=== PATIENT | female | born 1965 | race Caucasian/White ===

== ENCOUNTER 2025-01-26 16:42 | Inpatient (IN) | payer BC, SELFPAY ==
[2025-01-26] VITALS (9 sets, daily range): BP systolic 116–156; BP diastolic 76–120; BMI 38.2; BMI 37.0; BMI 36.9
--- NOTE | 2025-01-26 11:54 | ED.GENMED ---
History of Present Illness
<Krishna Blevins PA-C - Last Filed: 01/26/25 15:46>
General
Chief Complaint: Heart Rate Problem
Time Seen by Provider: 01/26/25 11:40
History of Present Illness
History of Present Illness:
59-year-old female presents to the emergency department for evaluation of heart palpitations, exertional dyspnea, and a positional cough for the past 5 days. She feels profoundly fatigued as well. Denies any overt chest pain or leg swelling.
Denies any recent medication changes, actually she is not on any prescription medicines. Denies any associated fevers or chills. No illicit substance use.
Review of Systems
<Krishna Blevins PA-C - Last Filed: 01/26/25 15:46>
Review of Systems
Allergies reviewed?: Yes
All Other Systems: ROS reviewed and negative except as documented in HPI and ROS
Phy Exam
<Krishna Blevins PA-C - Last Filed: 01/26/25 15:46>
Physical Exam
Physical Exam:
GEN: Well appearing, NAD, WDWN
HEENT: Oral mucosa moist, no scleral icterus
Cardiac: Tachycardic, regular, no murmur
Lung: No respiratory distress, no tachypnea, lungs clear
MSK: No gross deformity or injuries, no edema
Skin: Good color, no pallor or jaundice, no rashes
Neuro: AO x3, moves all extremities freely
Psych: Calm, cooperative
Course
<Krishna Blevins PA-C - Last Filed: 01/26/25 15:46>
Orders/Labs/Results
Orders:
Orders
01/26/25 11:06
Electrocardiogram (*1) Urgent
Reason for Study: Chest Pain
EKG- Treatment ONCE
01/26/25 11:44
Diltiazem 125 mg/125 ml Nss [Cardizem] 125 mg in 125 ml .ROUTE .STK-MED
Diltiazem HCl [Cardizem] 25 mg .ROUTE .STK-MED ONE
01/26/25 11:53
Diltiazem HCl [Cardizem] 25 mg IV NOW STA
01/26/25 11:54
CR Chest - 2 Views Urgent
Comment:
Reason For Exam: SOB/tachycardia
01/26/25 11:55
Complete Blood Count/No Diff Urgent
Comprehensive Metabolic Panel Urgent
Free T4 Urgent
Magnesium Urgent
TSH Reflex To Free T4 Urgent
01/26/25 12:00
Diltiazem 125 mg/125 ml Nss [Cardizem] 125 mg in 125 ml IV PER PROTOCOL
Initial dose in mg/hr, then titrate:: 5
Titrate to keep:: Heart rate 80-100 bpm
Titrate by mg/hr:: 5 mg/hr
Frequency of titrations (minutes):: 15
Maximum dose in mg/hr:: 15
01/26/25 13:33
Diltiazem [Cardizem] 60 mg PO NOW STA
01/26/25 15:24
Heparin 4,000 units IV NOW STA
Nursing to Place Non Medication Order As Directed
Physician Order: PTT 6 hours after initial start of Heparin infusion
01/26/25 15:30
Heparin 32004 Units/250 ml 25,000 units in 250 ml IV PER PROTOCOL
Weight to be used for heparin protocol in kilograms (kg):: 114
Protocol:: Cardiac Tx/Acute Coronary
PTT Goal Range to be used:: PTT 73 to 111 seconds
Order type:: Initial
INITIAL Infusion Dose (UNITS/KG/hr) & then follow protocol:: 15 units/kg/hr
Infusion Dose in UNITS/hr & then follow protocol (UNITS/hr):: 1,500
INFUSION RATE in mL/hr & then follow protocol (mL/hr):: 15
PTT less than or equal to 64 seconds:: Increase rate by 200 units/hr (+ 2 mL/hr)
PTT 64.1 to 72.9 seconds:: Increase rate by 100 units/hr (+ 1 mL/hr)
PTT 73 to 111 seconds:: Target Range. No change in rate.
PTT 111.1 to 130.9 seconds:: Decrease rate by 100 units/hr (- 1 mL/hr)
PTT 131 to 199.9 seconds:: HOLD for 1 hr. Then decrease rate by 200 units/hr (- 2 mL/hr)
PTT greater than or equal to 200 seconds:: HOLD for 2 hrs & Notify Provider. Then decrease by 200 units/hr (-
2 mL/hr)
Lab follow-up:: Each change, PTT q6h until 2 consecutive are therapeutic. Then PTT
daily.
01/26/25 15:37
PTT Urgent
Comment: Obtain baseline before beginning heparin infusion if not already collected
Abnormal Lab Results
01/26/25
11:55
Sodium 133 L mmol/L
(135-145)
Creatinine 1.2 H mg/dL
(0.6-1.0)
Glucose 100 H mg/dl
(70-99)
Alkaline Phosphatase 144 H U/L
(38-126)
TSH (Reflex) 9.72 H uIU/ml
(0.47-4.68)
01/26/25 11:55
01/26/25 11:55
Vital Signs
Initial and Last Documented VS:
Initial Vital Signs
Temp Pulse Resp BP Pulse Ox
98.4 F 59 20 156/120 96
01/26/25 11:02 01/26/25 11:02 01/26/25 11:02 01/26/25 11:02 01/26/25 11:02
Last Documented Vital Signs
Temp Pulse Resp BP Pulse Ox
98.4 F 109 24 146/89 97
01/26/25 11:02 01/26/25 15:14 01/26/25 15:14 01/26/25 15:14 01/26/25 14:00
Jacksonlt;Lang Salgado, - Last Filed: 01/26/25 15:29>
Orders/Labs/Results
Orders:
Orders
01/26/25 11:06
Electrocardiogram (*1) Urgent
Reason for Study: Chest Pain
EKG- Treatment ONCE
01/26/25 11:44
Diltiazem 125 mg/125 ml Nss [Cardizem] 125 mg in 125 ml .ROUTE .STK-MED
Diltiazem HCl [Cardizem] 25 mg .ROUTE .STK-MED ONE
01/26/25 11:53
Diltiazem HCl [Cardizem] 25 mg IV NOW STA
01/26/25 11:54
CR Chest - 2 Views Urgent
Comment:
Reason For Exam: SOB/tachycardia
01/26/25 11:55
Complete Blood Count/No Diff Urgent
Comprehensive Metabolic Panel Urgent
Free T4 Urgent
Magnesium Urgent
TSH Reflex To Free T4 Urgent
01/26/25 12:00
Diltiazem 125 mg/125 ml Nss [Cardizem] 125 mg in 125 ml IV PER PROTOCOL
Initial dose in mg/hr, then titrate:: 5
Titrate to keep:: Heart rate 80-100 bpm
Titrate by mg/hr:: 5 mg/hr
Frequency of titrations (minutes):: 15
Maximum dose in mg/hr:: 15
01/26/25 13:33
Diltiazem [Cardizem] 60 mg PO NOW STA
01/26/25 15:24
Heparin 4,000 units IV NOW STA
Nursing to Place Non Medication Order As Directed
Physician Order: PTT 6 hours after initial start of Heparin infusion
01/26/25 15:30
Heparin 14027 Units/250 ml 25,000 units in 250 ml IV PER PROTOCOL
Weight to be used for heparin protocol in kilograms (kg):: 114
Protocol:: Cardiac Tx/Acute Coronary
PTT Goal Range to be used:: PTT 73 to 111 seconds
Order type:: Initial
INITIAL Infusion Dose (UNITS/KG/hr) & then follow protocol:: 15 units/kg/hr
Infusion Dose in UNITS/hr & then follow protocol (UNITS/hr):: 1,500
INFUSION RATE in mL/hr & then follow protocol (mL/hr):: 15
PTT less than or equal to 64 seconds:: Increase rate by 200 units/hr (+ 2 mL/hr)
PTT 64.1 to 72.9 seconds:: Increase rate by 100 units/hr (+ 1 mL/hr)
PTT 73 to 111 seconds:: Target Range. No change in rate.
PTT 111.1 to 130.9 seconds:: Decrease rate by 100 units/hr (- 1 mL/hr)
PTT 131 to 199.9 seconds:: HOLD for 1 hr. Then decrease rate by 200 units/hr (- 2 mL/hr)
PTT greater than or equal to 200 seconds:: HOLD for 2 hrs & Notify Provider. Then decrease by 200 units/hr (-
2 mL/hr)
Lab follow-up:: Each change, PTT q6h until 2 consecutive are therapeutic. Then PTT
daily.
01/26/25 15:37
PTT Urgent
Comment: Obtain baseline before beginning heparin infusion if not already collected
Abnormal Lab Results
01/26/25
11:55
Sodium 133 L mmol/L
(135-145)
Creatinine 1.2 H mg/dL
(0.6-1.0)
Glucose 100 H mg/dl
(70-99)
Alkaline Phosphatase 144 H U/L
(38-126)
TSH (Reflex) 9.72 H uIU/ml
(0.47-4.68)
01/26/25 11:55
01/26/25 11:55
Vital Signs
Initial and Last Documented VS:
Initial Vital Signs
Temp Pulse Resp BP Pulse Ox
98.4 F 59 20 156/120 96
01/26/25 11:02 01/26/25 11:02 01/26/25 11:02 01/26/25 11:02 01/26/25 11:02
Last Documented Vital Signs
Temp Pulse Resp BP Pulse Ox
98.4 F 109 24 146/89 97
01/26/25 11:02 01/26/25 15:14 01/26/25 15:14 01/26/25 15:14 01/26/25 14:00
<Krishna Blevins PA-C - Last Filed: 01/26/25 15:46>
MDM/Problems Addressed
MDM/Problems Addressed:
59-year-old female presenting with new onset rapid A-fib for at least the past 5 days. She has exertional dyspnea however no anginal symptoms and does not appear grossly volume overloaded, clinical picture not consistent with acute CHF. She was
started promptly on IV diltiazem bolus and infusion with good rate control, given overall well clinical appearance we then gave her an oral loading dose and observed her while maintaining the Cardizem drip. However despite this oral loading
challenge she continues with significant tachycardia with ambulation. Will admit for further rate control options given that she remains symptomatic with ambulation
<Krishna Blevins PA-C - Last Filed: 01/26/25 15:46>
Comment
Comment:
EKG independently interpreted by me shows a rapid atrial fibrillation with no ST changes concerning for ischemia
*Pulse Oximetry
SaO2: 96
Oxygen Mode of Delivery: Room air
Patient hypoxic: no
*Critical Care Note
Total Time (30-74mins, 75-104mins- exclusive of procedures): Not Applicable
ED Attending Note
<Krishna Blevins PA-C - Last Filed: 01/26/25 15:46>
-
Portions of this chart may have been created with voice recognition software.� Occasional wrong word or��sound alike� substitutions may have occurred due to the inherent limitations of voice recognition software.
<Lang Salgado DO - Last Filed: 01/26/25 15:29>
ED Attending Note
Patient seen and examined by attending physician: Yes
I performed the substantive portion of visit, reviewed & personally made and approve the management plan that is documented in note by myself or JERAD.: Yes
ED Attending Note:
Patient presents with palpitations/rapid heart rate. Symptoms have been present for several days. Patient does not anticoagulated. She does not have a relationship with a academic support director.
General: Awake, Alert, Oriented X3. No acute distress.
Vitals: unremarkable
Head: Atraumatic
Lungs: Clear and equal b/l
Heart: Mildly tachycardic, irregular
Abd: Soft, Nontender, No pulsatile mass
Neuro: Nonfocal
Skin: Warm, dry, no rash
Extremities: pulses equal b/l, no edema
Rate control attempted with IV Cardizem. Patient is not a candidate for cardioversion given she has had symptoms for greater than 48 hours without being anticoagulated. Patient will be hospitalized for rate control and ultimate cardioversion
Discharge Plan
Departure
Patient Disposition: Admit
Date of Disposition: 01/26/25
Time of Disposition: 15:25
Admit to: IMU
Presentation/result/management discussed w/ accepting MD/DO: Hospitalist
Discharge Problem:
Atrial fibrillation with RVR
Prescriptions:
No Action
Theragen Tablet
1 tab PO DAILY
ferrous sulfate 137 mg (45 mg iron) Tablet Extended Release
137 mg PO DAILY
Referrals:
Ayse Almonte PA-C [Family Provider, [facility]]
Interventions
Interventions:
*Risk Screen - Suicide Last Done: 01/26/25 11:02
*General Assessment Last Done: 01/26/25 11:02
*Neglect/Abuse Screening Last Done: 01/26/25 11:02
*ED- Fall Risk Assessment Last Done: 01/26/25 15:21
*ED COVID-19 Vaccine History Last Done: 01/26/25 15:21
*ED Influenza Vaccine History Last Done: 01/26/25 15:21
ED- Cardiac Assessment Last Done: 01/26/25 12:07
ED- Pulmonary Assessment Last Done: 01/26/25 12:07
Discharge Date and Time
Print Language: CITIZEN OF [place]
[2025-01-26] MEDS: CARDIZEM 25 MG IV (11:56)
[2025-01-26] MEDS: CARDIZEM 125 IV (12:02)
[2025-01-26 12:10] LABS: Hematocrit 40.8 % (37.0-47.0); Hemoglobin 13.6 g/dL (12.0-16.0); Mean Corp Hgb Conc. 33.3 g/dL (33.0-37.0); Mean Corpuscular Volume 88.5 fL (81.0-99.0); Platelet Count 313 10^3/uL (130-400); Red Cell Dist. Width 13.3 % (11.5-14.5)
[2025-01-26 12:26] LABS: ALT (SGPT) 19 U/L (0-35); AST (SGOT) 23 U/L (14-36); Albumin 4.4 g/dl (3.5-5.0); Alkaline Phosphatase 144 U/L (38-126); Blood Urea Nitrogen 13 mg/dl (7-17); Calcium 9.1 mg/dl (8.4-10.2); Carbon Dioxide 26 mmol/L (22-30); Chloride 100 mmol/L (98-107); Estimated Creatinine Clearance 67 ml/min; Glucose 100 mg/dl (70-99); Magnesium 2.1 mg/dl (1.6-2.3); Potassium 4.2 mmol/L (3.5-5.1); Sodium 133 mmol/L (135-145); Total Protein 7.6 g/dl (6.3-8.2); eGFR 52.14
[2025-01-26] MEDS: CARDIZEM 60 MG PO (13:41)
--- NOTE | 2025-01-26 15:26 | HPS.HSE ---
Family Physician
-
Family Physician: Ayse Almonte
Chief Complaint
-
palpitations and shortness of breath
History of Present Illness
Patient is a 59-year-old female with past medical history significant for hypertension who presented to [facility] ED for evaluation of palpitations and shortness of breath. Patient reports symptoms started approximately 5 days ago, were intermittent and
shortness of breath was exertional and not at rest. Patient does note some lightheadedness with palpitations. Denies any chest pain, cough, diaphoresis, nausea or vomiting.
Medical History
Past Medical History
Past Medical History: Reports Other
Additional Past Medical History:
hypertension
Past Surgical History: Reports None
Additional Past Surgical History:
Vaginal Polyp
Cholecystectomy
Social History
Tobacco: Non-smoker
Alcohol: None
Drug: None
Living: With Roomate
Family History
Family History: Other (Father: CAD, Graves' Disease, [place]; Mother: Lung cancer; Sister: endometrial cancer)
Allergies / Home Medications
Allergies reflects when Allergies were last updated in [facility].
Home Medications with original date entered in [facility]
Allergy/Medication List:
Allergies
Allergy/AdvReac Type Severity Reaction Status Date / Time
venom-honey bee (bee venom Allergy Shortness Verified 01/26/25 11:05
(honey bee)) of Breath
Home Medications
ferrous sulfate 137 mg (45 mg iron) tablet,extended release 137 mg PO DAILY Supplement 01/26/25
therapeutic multivitamin 1 tab PO DAILY Supplement 01/26/25
Review of Systems
-
History Source: Patient
Constitutional: Denies Fever or Chills
EENT: Denies Sore Throat
Respiratory: Reports Trouble Breathing (exertional dyspnea ); Denies Cough or Hemoptysis
Cardiac: Reports Palpitations; Denies Chest Pain, Diaphoresis or Syncope
Abdomen/GI: Denies Abdominal Pain, Nausea, Vomiting or Diarrhea
: Denies Dysuria, Frequency or Urgency
Skin: Denies Rash
Neurological: Reports Dizzy (some lightheadedness noted with palpitations ); Denies Headache, Weakness or Numbness
Endocrine: Denies Polyuria or Polydipsia
Physical Exam
Vital Signs
Vital Signs
Temp Pulse Resp BP Pulse Ox
98.4 F 109 24 146/89 97
01/26/25 11:02 01/26/25 15:14 01/26/25 15:14 01/26/25 15:14 01/26/25 14:00
Physical Exam
General: Well Developed, Well Nourished, No Apparent Distress, Comfortable and Obese
HEENT: NormoCephalic, Moist mucous membranes, PERRLA, Nose Appears Normal and Ears Appear Normal
Respiratory: Clear and Non Labored Respirations
Cardiac: S1/S2, Irregular Rhythm, Tachycardia and Peripheral Edema (bilateral lower extremity +1-2 ); No Murmur
GI: Soft, Non Tender, Non Distended and Normal Bowel Sounds
Musculoskeletal: No Clubbing and No Cyanosis
Skin: Warm and IV/Catheter Site
Neuro: Awake and AO x 3
Psych: Calm and Intact Judgment/Insight
Laboratory Results
-
01/26/25 11:55
01/26/25 11:55
Laboratory Results
Total Bilirubin 1.0 mg/dl (0.2-1.3) 01/26/25 11:55
AST 23 U/L (14-36) 01/26/25 11:55
ALT 19 U/L (0-35) 01/26/25 11:55
Alkaline Phosphatase 144 U/L (38-126) H 01/26/25 11:55
Data Reviewed
-
Diagnostic Radiology: Report Reviewed by me (CXR: Clear lungs.)
Medical Tests (Nuc Med, Echo, EKG etc): Report Reviewed by me (EKG: ATRIAL FIBRILLATION WITH RAPID VENTRICULAR RESPONSE)
Lab Data: Labs Reviewed by me (Na 133, Creat 1.2, est CrCl 67, eGFR 52.14, TSH 9.72)
Impression/Plan
-
IMPRESSION/PLAN:
#palpitations and exertional dyspnea likely 2/2 atrial fibrillation with rapid ventricular response
CXR: Clear lungs.
EKG: ATRIAL FIBRILLATION WITH RAPID VENTRICULAR RESPONSE
- Admit to IVU
- Consult Cardiology
- Consult CM for anticoagulant cost
- diltiazem gtt
- heparin gtt
#acute kidney injury??
Na 133, Creat 1.2, est CrCl 67, eGFR 52.14
- monitor BMP
#subclinical hypothyroidism vs. sick euthyroid
TSH 9.72
- check free T3 and T4
- follow up with PCP in 6 weeks
#hypertension - untreated
patient reports having taken HCTZ in past, ran out 2 years ago and has not seen doctor for refill since
- ECHO
- monitor VS for now while on Diltiazem gtt
Code status: Full code
DVT prophylaxis: heparin gtt
--- NOTE | 2025-01-26 15:54 | W.PN.UPDATE ---
Update Note
Progress Note Update
This note serves as an addendum to the H&P by slasher tender Marlene Block
HPI
59F significant PMH HTN , was on HCTZ , non adherence for 2 yrs seen at ER
POS FHX CAD - Father for [place]
- evaluation of palpitations, exertional dyspnea, and a positional cough for the past 5 days.
- feels profoundly fatigued
- denies any overt chest pain or leg swelling. -
- denies any recent medication changes, actually she is not on any prescription medicines. D
- denies any associated fevers or chills.
- No illicit substance use.
Relevant VS
Temp Pulse Resp BP Pulse Ox
98.4 F 109 24 146/89 97
01/26/25 11:02 01/26/25 15:14 01/26/25 15:14 01/26/25 15:14 01/26/25 14:00
01/26/25
11:56 01/26/25
13:00 01/26/25
14:00
Pulse 147 110 102
PE
Gen: Class II obese BMI
HEENT: anicteric
Neck: supple
Lungs: CTA
Cor: Irregular rhythm. No murmur
Abdomen:�soft NT NG
ELECTRICAL APPLIANCE MECHANIC: AAO3 NFND
MS: no edema
Psych: Nl mood
Relevant data�
01/26/25
11:55
WBC 8.4
Hgb 13.6
Plt Count 313
Sodium 133 L
Creatinine 1.2 H
eGFR 52.14
Alkaline Phosphatase 144 H
TSH (Reflex) 9.72 H
Free T4 1.00
EKG
ATRIAL FIBRILLATION WITH RAPID VENTRICULAR RESPONSE
ABNORMAL ECG
WHEN COMPARED WITH ECG OF 25-May-2014 10:43,
ATRIAL FIBRILLATION HAS REPLACED SINUS RHYTHM
VENT. RATE HAS INCREASED by 62 bpm
NONSPECIFIC T WAVE ABNORMALITY NOW EVIDENT IN LATERAL LEADS
Confirmed by CANDACE KWONG MD ([id number]) on 01/26/2025 11:32:56 AM
No PRIOR hospitalist admission:
ASSESSMENT & PLAN
New onset fast AF - intermittent palpitation
Suspect untreated HTN
- c/w Diltiazem gtt for titration
- c/w Heparin gtt
- ECHO in AM
- CRM consult for cost analysis of Eliquis
- IVU
Elevated TSH with Nl FT4 - Sick Euthyroid vs. subclinical hypothyroid
- check FT3
- Repeat TSH in 4- 6 weeks with PCP
Untreated suspect HTN
- observe BP on Diltazem gtt for now
- await ECHO for LV function
Mild TABITHA
HTN renal dz ?
- Observe Cr with HR control
Class II Obesity
DVT Px: Heparin gtt
Full code
IVU
[2025-01-26 15:56] LABS: APTT 28.2 Sec (23.4-35.0)
--- NOTE | 2025-01-26 16:19 | CON.CAR ---
Addendum entered and electronically signed by Joe Carr MD 01/26/25 18:26:
I saw and evaluated the patient, and I provided the substantive portion of the medical decision making.
I reviewed and agree with the note by CARRILLO Juares and it accurately reflects our care.
I personally performed the medical decision making of the this encounter and my assessment and plan is below:
In addition to this most recent episode she has probably had 2 episodes over the past 1 to 2 years of rapid palpitations with dyspnea. These 2 other episodes lasted less than 1 to 2 hours. But otherwise remind her of what she is experiencing now.
EKG tracing reviewed: With fast A-fib. Nonspecific ST and T changes. Reviewed chest x-ray image: No heart failure. CBC and PTT are normal. Sodium mildly low at 133. Creatinine 1.2. Glucose 100.
TSH 9.7 but T4 and T3 free's are normal. Blood pressure mildly elevated. Lungs clear cardiac irregular no significant murmur no peripheral edema.
Impression:
Symptomatic A-fib with RVR, by history this is paroxysmal although were not certain when this episode will stop.
History of hypertension, blood pressure elevated.
Obesity, BMI 37
Snoring, her describes a sleeping pattern that might be consistent with apnea: I recommended a sleep study and working on lowering her BMI to less than 27.
Plan:
I reviewed all aspects of A-fib: Symptom control, prevention of heart failure, prevention of stroke. Risk benefits and alternatives of anticoagulation. Rate versus rhythm control. Through growing role for early ablation. The role for pill in the
pocket antiarrhythmic drug therapy. I carefully reviewed A-fib risk factor modification. For this patient weight reduction and exercise and treatment of any sleep apnea found will be the ocampo factors for her. She does not drink alcohol.
For now we will progress to early SANJEEV cardioversion and then add oral anticoagulant therapy.
Original Note:
Consultation
Consultation Request
Date/Time Consultation Requested: 01/26/25 1615
Date/Time Consultation Performed: 01/26/25 1620
Requesting Provider: Diana Xu GROUP EXERCISE INSTRUCTOR
Performing Provider: Elaine VIZCAINO for Dr. Carr
Reason for Consultation: AFIB
Medical History
-
Chief Complaint: palps, dizziness, SOB
History of Present Illness:
59 y/o female with obesity and hypertension (no longer on meds) is here for evaluation of about 5 days of palpitations, dizziness, and SOB. She came to the ER and is seen to be in AFIB with RVR and is placed on a diltiazem drip. She is in no
distress at the time of my assessment. Spouse Karen is at bedside.
Past Medical History
Past Medical History: HTN
Social History
Tobacco: Non-Smoker
Alcohol: None
Drug: None
Personal:
Living: With Family
Family History
Family History: CAD (dad [place] age 64)
Allergies / Home Medications
Allergy/AdvReac Type Severity Reaction Status Date / Time
venom-honey bee (bee venom Allergy Shortness Verified 01/26/25 11:05
(honey bee)) of Breath
�Medication �Instructions �Recorded �Confirmed �Type
ferrous sulfate 137 mg (45 mg 137 mg PO DAILY Supplement 01/26/25 01/26/25 History
iron) tablet,extended release
therapeutic multivitamin 1 tab PO DAILY Supplement 01/26/25 01/26/25 History
Review of Systems
-
History Source: Patient
All other systems: Negative unless noted
Respiratory: Trouble Breathing
Cardiac: Palpitations
Neurological: Dizzy
Physical Exam
Vital Signs
Temp Pulse Resp BP Pulse Ox
98.4 F 109 24 146/89 97
01/26/25 11:02 01/26/25 15:14 01/26/25 15:14 01/26/25 15:14 01/26/25 14:00
Lab Results
01/26/25 11:55
10/29/25 11:55
Physical Exam
General: Well Developed and Well Nourished
HEENT: Normocephalic and Anicteric
Respiratory: Clear and Non Labored Respirations
Cardiac: Irregular Rhythm
Musculoskeletal: No Edema
Skin: Warm and Dry
Neuro: AO x 3
Psych: Calm
Impression / Plan
-
AFIB with RVR: new diagnosis
-continue IV diltiazem, which requires intensive monitoring- hold sprinkler irrigation equipment mechanic for procedure
-[id number] score is 2 for female and HTN. Continue IV heparin (which also requires intensive monitoring), then switch to Eliquis- consulted for pricing, but can likely use copay card
-TSH is elevated, but free T4 okay- management per primary team
-she admits to snoring and we discussed that she should have an OP sleep study. Also discussed that aerobic exercise and weight loss will be helpful. She does not drink ETOH.
-plan for SANJEEV and CV tomorrow- we discussed procedure in detail and she is agreeable- nursing clean up supervisor made aware. We also discussed possibility of AAD or ablation if needed in the future.
HTN:
-not well-controlled, monitor with addition of CCB
-previously on medications, but stopped (no issue on med, got busy)
Obesity:
-weight loss will be helpful moving forward
Data Reviewed
-
EKG: Tracing Personally Visualized and interpreted (AFIB with RVR)
Radiology: Report Reviewed by me (CXR: Clear lungs)
Medical Tests (Nuc Med, Echo etc): Other (SANJEEV ordered )
Labs: Labs Reviewed by me
[2025-01-26] MEDS: HEPARIN 4000 UNITS IV (17:54)
[2025-01-26] MEDS: HEPARIN 25000 UNITS/250 ML IV (17:58)
[2025-01-26 17:59] LABS: Free T3 3.37 pg/ml (2.77-5.27)
--- NOTE | 2025-01-26 23:33 | PTCARENOTE ---
Assumed care of patient at change of shift. Pt AAOx3 and ambulating self in room. Tele remains Afib. HR in the 90-110's at rest. When ambulating HR increases to the 130-150's. Denies any lightheadedness or dizziness. Patient reports breathing feels
'labored'. Lungs clear throughout, and sating 96-100% RA. IV Cardizem gtt infusing at 15mg/hr and IV Heparin gtt infusing at 1500units/hr. Next PTT due at midnight. Patient aware to maintain NPO status on 01/27 for ECHO/SANJEEV. Pt oriented to room,
call bruno in reach.
[2025-01-27 00:47] LABS: INR 1.17; PT 15.4 Sec (11.4-14.6)
[2025-01-27 01:06] LABS: APTT 92.7 Sec (23.4-35.0)
[2025-01-27] MEDS: CARDIZEM 125 IV (04:28)
[2025-01-27 04:32] VITALS: BP 121/82
[2025-01-27 06:38] LABS: APTT 73.4 Sec (23.4-35.0)
[2025-01-27 07:19] LABS: Blood Urea Nitrogen 13 mg/dl (7-17); Calcium 9.1 mg/dl (8.4-10.2); Carbon Dioxide 24 mmol/L (22-30); Chloride 105 mmol/L (98-107); Estimated Creatinine Clearance 72 ml/min; Glucose 111 mg/dl (70-99); HDL Cholesterol 38 mg/dl; LDL Cholesterol, Calculated 132 mg/dl; Potassium 4.0 mmol/L (3.5-5.1); Sodium 140 mmol/L (135-145); Very Low Density Lipoprotein 40 mg/dl (0-30); eGFR 57.88
[2025-01-27 07:59] VITALS: BP 107/90
--- NOTE | 2025-01-27 08:55 | W.PN.CD ---
Today's Communication / Plan
-
fer/dccv
start eliquis and stop hep gtt (dw IVU nursing)
likely discharge after fer/dccv
Impression / Plan
-
AFIB with RVR: new diagnosis
-continue IV diltiazem, which requires intensive monitoring- hold sales and marketing professional for procedure
-will transition to po bb dose when we see her sinus rate
-[id number] score is 2 for female and HTN. Will switch to Eliquis- consulted for pricing, but can likely use copay card
-TSH is elevated, but free T4 okay- management per primary team
-needs op sleep study
-needs weight loss and exercise.
-stable to proceed to FER and CV today
-op to consider possibility of AAD or ablation if needed in the future.
NSVT; 9beats nsvt overnight, asx
-will start bb post cardioversion
HTN:
-not well-controlled, will start bb post fer
-previously on medications, but stopped (no issue on med, got busy)
Obesity:
-weight loss will be helpful moving forward
Physical Exam
Vital Signs/Labs
Vital Signs
Temp Pulse Resp BP Pulse Ox
98.1 F 79 20 107/90 97
01/27/25 07:59 01/27/25 08:00 01/27/25 07:59 01/27/25 07:59 01/27/25 08:44
01/26/25 01/27/25 01/28/25
06:59 06:59 06:59
Actual Weight 242 lb 11.663 oz
01/27/25 06:15
PT 15.4 Sec (11.4-14.6) H 01/27/25 00:18
INR 1.17 01/27/25 00:18
APTT 73.4 Sec (23.4-35.0) H 01/27/25 06:15
Magnesium 2.1 mg/dl (1.6-2.3) 01/26/25 11:55
Triglycerides 204 mg/dl (10-149) H 01/27/25 06:15
LDL Cholesterol, Calc 132 mg/dl 01/27/25 06:15
VLDL Cholesterol, Calc 40 mg/dl (0-30) H 01/27/25 06:15
HDL Cholesterol 38 mg/dl 01/27/25 06:15
Free T4 1.00 ng/dl (0.78-2.19) 01/26/25 11:55
Physical Exam
Constitutional: No acute distress
Cardiovascular: Pedal edema is absent, JVD pressure is normal, Systolic murmur absent, Diastolic murmur absent and Rhythm/rate is irregular
Respiratory: Respiratory effort normal, Lungs clear to auscul., Wheeze Absent and Crackles Absent
Neuro/Psych: AO x 3
Data Reviewed
-
Date of Service: January 27, 2025
Medical Decision Making: Review of Case with other Provider (D/w Nursing and resident transition to [facility], add bb post procedure)
[2025-01-27] MEDS: ELIQUIS 5 MG PO (09:15)
[2025-01-27 09:20] LABS: Hematocrit 41.3 % (37.0-47.0); Hemoglobin 13.5 g/dL (12.0-16.0); Mean Corp Hgb Conc. 32.7 g/dL (33.0-37.0); Mean Corpuscular Volume 91.8 fL (81.0-99.0); Platelet Count 275 10^3/uL (130-400); Red Cell Dist. Width 13.3 % (11.5-14.5)
--- NOTE | 2025-01-27 09:33 | W.PN.HOSP.TC ---
Addendum entered and electronically signed by Noe Allen MD 01/27/25 12:19:
Attending�addendum:
I saw and evaluated the patient. I reviewed the resident�s note and agree with findings and plan as documented in the resident�s note.��patient seen and examined at bedside, spouse at bedside, denies any chest pain or shortness of breath, but still
currently on A-fib with RVR no abdominal pain, no nausea, no vomiting, no diarrhea or constipation.
Physical�exam:
GENERAL : Patient is awake, alert, oriented x3
HEENT: Nonicteric sclerae, PERRLA, EOMI. Oropharynx clear. Moist mucous membranes. Conjunctivae appear well perfused.
CHEST: Chest wall is nontender.
HEART: Irregular rate and rhythm without murmurs.
LUNGS: Clear to auscultation bilaterally.
ABDOMEN: Soft, positive bowel sounds, nontender, no organomegaly.
RECTAL: Deferred.
MUSCLES/EXTREMITIES: No abnormal range of motion, no swelling.SKIN: No rash, no excessive bruising, petechiae, or purpura.
NEUROLOGIC: Cranial nerves II-XII intact without motor/sensory deficit.
�
Assessment/plan:
Atrial fibrillation with RVR.
Seen by cardiology.
For SANJEEV/cardioversion today.
Beta-magalis/Eliquis
History of hypertension.
No need to resume hydrochlorothiazide, will be discharged on beta-magalis
CODE STATUS: Full code
DVT prophylaxis: Eliquis
Diet: N.p.o.
Family communication: Discussed with spouse at bedside.
Disposition:SANJEEV/Cardioversion today
�
Total time spent on today�s encounter was 55 minutes which included time spent in counseling the patient/family regarding diagnosis and treatment plan as listed above, goals of care, and symptom management. Case was discussed with nursing staff,
specialists, and care coordinators/case management. All labs and imaging personally reviewed by me. Remainder the time spent in detailed review of previous records, lab data, imaging, and other medical provider documentation.
Original Note:
Today's Communication/Plan
-
SANJEEV with CV
Start beta-magalis after SANJEEV
Start statin
Obtain troponin and proBNP
Assessment / Plan
Assessment / Plan
Patient is a 59-year-old female with past medical history significant for hypertension who presented to [facility] ED for evaluation of palpitations and shortness of breath. Patient reports symptoms started approximately 5 days ago, were intermittent and
shortness of breath was exertional and not at rest. Patient does note some lightheadedness with palpitations. Denies any chest pain, cough, diaphoresis, nausea or vomiting.
#AFIB with RVR
#Elevated TSH
new diagnosis
Uncontrolled hypertension
S/p diltiazem drip
S/p heparin drip
Cardiology consult, appreciate recs
-[id number] score is 2 for female and HTN.
- Start Eliquis
consulted for pricing, but can likely use copay card
-TSH is elevated 9.7, normal T4 1.0, T3 normal 3.3
Subclinical hypothyroidism versus euthyroid
-Outpatient follow-up for TSH
- OP sleep study
- SANJEEV and CV today
-Plan for beta-magalis after cardioversion
- Obtain troponins
- Obtain proBNP
#Essential HTN:
Uncontrolled, 2 years without prescription medication
-previously on medications, but stopped no issue on med/financial, got busy
Cardiology recommends BB after CV
#Obesity
weight loss encouraged
Possible DAREK, OP study
Follow-up outpatient
#TABITHA
Unknown baseline
Presented CR 1.2, downtrending 1.1 today
Continue to monitor
#Dyslipidemia
#Metabolic syndrome
ASCVD risk 6.5%
Hypertension
Obesity
Lipid panel
Triglycerides 204
Total cholesterol 210
LDL 132
VLDL 40
HDL 38
Patient not on medication
Random glucose 111
A1c 5.3
Atorvastatin 10 mg
Outpatient follow-up
DVT prophylaxis: Heparin drip transition to Eliquis
CODE STATUS: Full code
Anticipated Discharge: Within 24 hours
Subjective/Interval History
-
Patient was seen at bedside. She reports no current nausea or vomiting shortness of breath chest pain, but reports palpitations. She reports that she has had these of the palpitations twice before during exertion but they would self resolve after
rest. And during this episode she noticed that her blood pressure was initially normal and then repeated the blood pressure a couple of days after the start and was highly elevated. She said the palpitations and shortness of breath worsened with
bending. She reports no recent illness no recent travel and has been mostly sedentary in the past couple months. She reports not taking her antihypertensive medications for 2 years on records no ethanol use and no smoking history. She did report
a distant history of migratory right leg pain that started behind her right knee and migrated down to her right ankle but self resolved in about a month. Date of Service: January 27, 2025
Objective Data
-
Labs:
Laboratory Results
01/27/25 01/27/25 01/27/25
00:18 06:15 09:05
WBC 6.4
Hgb 13.5
Hct 41.3
Plt Count 275
PT 15.4 H
INR 1.17
APTT 92.7 H 73.4 H
Sodium 140
Potassium 4.0
Chloride 105
Carbon Dioxide 24
BUN 13
Creatinine 1.1 H
Glucose 111 H
Calcium 9.1
Vital Signs:
Vital Signs
Temp Pulse Resp BP Pulse Ox
98.1 F 79 20 107/90 97
01/27/25 07:59 01/27/25 08:00 01/27/25 07:59 01/27/25 07:59 01/27/25 08:44
I&O
01/26/25 01/27/25 01/28/25
06:59 06:59 06:59
Intake Total 185 / 705
Balance /
Review of Systems
-
History Source: Patient
Constitutional: Denies Fever or Chills
EENT: Denies Sore Throat or Runny Nose
Respiratory: Denies Cough or Trouble Breathing
Cardiac: Reports Palpitations; Denies Chest Pain, Diaphoresis or Syncope
Abdomen/GI: Denies Abdominal Pain, Nausea, Vomiting, Diarrhea or Constipated
Genitourinary: Denies Dysuria or Frequency
Musculoskeletal: Denies Edema
Neuro: Reports Headache (This a.m.); Denies Dizzy
Physical Exam
-
General: Well Developed, Well Nourished, No Apparent Distress, Comfortable and Obese; Negative Fever
HEENT: Normocephalic and Atraumatic
Respiratory: Clear to Auscultation and Non Labored Respirations; Negative Wheezes or Crackles
Cardiac: S1/S2, Irregular Rhythm and Tachycardic; Negative Murmur or Calf Tenderness
GI: Soft, Nontender, Nondistended and Normal Bowel Sounds
Musculoskeletal: No Cyanosis and No Edema
Skin: Warm and Dry
Neuro: Awake, Alert and Oriented
[2025-01-27 10:02] LABS: Glycohemoglobin (HgbA1c) 5.3 % (4.0-5.9)
--- NOTE | 2025-01-27 10:12 | CM ---
Reviewed chart. Met with and Mrs. Haskins to review discharge plans. She states prior to admission she resides with her spouse in a spilt level home with five steps to enter. She states she has five steps to get to her bedroom/full bathroom and
five steps down to get to her powder room on the first floor. She states prior to admission she was independent with ambulation and adls. She states she does not have any DME in the home. She states she has a prescription plan and uses [facility]. Telephone call to her insurance to check on coverage for Eliquis 5 mg po bid and Xarelto 2o mg po daily. Her co-pay for Eliquis is $35.00 a month or $87.50 for ninety day supply. Xarelto is also the same nunez, $35.00 a month and $87.50
for ninety day supply. Reviewed co-pay with her. She has commercial insurance so she can use the $10.00 co-pay card. Placed the free and $10.00 co-pay on the front of her chart. She is agreeable to the $10.00 co-pay card. She states her
insurance will end at the end of the year because her spouse is retiring. Medical work-up in progress. The discharge plan is to return home with her spouse when medically stable.
[2025-01-27 12:31] VITALS: BP 121/79
[2025-01-27] MEDS: COREG 6.25 MG PO (12:50)
--- NOTE | 2025-01-27 15:26 | W.DCSUMMARY ---
Addendum entered and electronically signed by Noe Allen MD 01/27/25 16:36:
Attending�addendum:
I saw and evaluated the patient. I reviewed the resident�s note and agree with findings and plan as documented in the resident�s note.��patient seen and examined at bedside, spouse at bedside, patient went for SANJEEV/cardioversion but became hypoxic
and procedure aborted, patient insisting to leave today, patient still with rapid A-fib and cardiology recommending to stay overnight for better heart rate control but patient wants to leave and threatening to leave AGAINST MEDICAL ADVICE.
Patient will be discharged home and advised to come back to the ER if heart rate still not controlled.
Advised to monitor heart rate at home if possible using smart watch device.
Patient provided with prescription for Eliquis/carvedilol/atorvastatin
Physical�exam:
GENERAL : Patient is awake, alert, oriented x3
HEENT: Nonicteric sclerae, PERRLA, EOMI. Oropharynx clear. Moist mucous membranes. Conjunctivae appear well perfused.
CHEST: Chest wall is nontender.
HEART: Irregular rate and rhythm without murmurs.
LUNGS: Clear to auscultation bilaterally.
ABDOMEN: Soft, positive bowel sounds, nontender, no organomegaly.
RECTAL: Deferred.
MUSCLES/EXTREMITIES: No abnormal range of motion, no swelling.SKIN: No rash, no excessive bruising, petechiae, or purpura.
NEUROLOGIC: Cranial nerves II-XII intact without motor/sensory deficit.
�
Assessment/plan:
Atrial fibrillation with RVR.
SANJEEV/cardioversion was not able to be completed.
chos hows:
1. Left ventricular cavity size is 5.40 cm which is normal.
2. Severe concentric left ventricular hypertrophy.
3. Low normal left ventricular function.
4. Ejection fraction is 50-55% by Dubon's method of discs.
5. Diastolic function indeterminate due to atrial fibrillation.
6. Right ventricular size and systolic function are within normal limits.
7. Indexed left atrial volume is mildly abnormal (35-41 ml/m2).
8. No significant valve disease.
9. Compared to a prior transesophageal echocardiogram study from 01/27/2025 no significant changes are seen.
Patient was frustrated and wanted to leave AMA.
Will be discharged on carvedilol/Eliquis/atorvastatin.
Concern of sleep apnea.
Advised to follow-up with pulmonology as outpatient for sleep study
Obesity.
Lifestyle modification
History of hypertension.
Carvedilol
Severe concentric left ventricular hypertrophy.
Possible secondary to severe uncontrolled hypertension.
Started beta-magalis.
Follow-up with cardiology as OP
CODE STATUS: Full code
DVT prophylaxis: Eliquis
Diet: Cardiac
Family communication: Discussed with spouse at bedside.
Disposition: Discharge home
�
Total time spent on today�s encounter was 40 minutes which included time spent in counseling the patient/family regarding diagnosis and treatment plan as listed above, goals of care, and symptom management. Case was discussed with nursing staff,
specialists, and care coordinators/case management. All labs and imaging personally reviewed by me. Remainder the time spent in detailed review of previous records, lab data, imaging, and other medical provider documentation.
Original Note:
Documented by User: Zayra Meehan MD, Resident 01/27/25 15:52
Discharge Summary
Discharge Data
Date of Admission: 01/26/25
Date of Discharge: 01/27/25
-
Pending Results: Yes
Additional Pending Results:
Troponin
proBNP
Hospital Course
Discharging Physician :
Dr. Allen
Dr. Meehan
Disposition :
Home
Primary care physician :
Ayse Almonte
Principal Discharge diagnosis :
Atrial fibrillation with RVR
Metabolic syndrome
Chronic Discharge diagnosis :
Essential hypertension
Obesity
Dyslipidemia
Metabolic syndrome
Hospital Course :
Patient is a 59-year-old female with past medical history significant for hypertension, obesity who presented to [facility] ED for evaluation of palpitations and shortness of breath. Patient reports symptoms started approximately 01/21 when she recalls no
precipitating factors. During this episode she noticed that her blood pressure was initially normal and then repeated the blood pressure which was highly elevated. She said the palpitations and shortness of breath worsened with bending. She
reports no recent illness no recent travel and has been mostly sedentary in the past couple months. She reports not taking her antihypertensive medications for 2 years due to being busy. In the ED EKG was ordered which showed her in A-fib with
RVR. Patient was started on heparin drip and diltiazem drip and cardiology was consulted. Cardiology consulted patient about risk factors for A-fib and planned for SANJEEV and cardioversion. On 01/27 lipid panel came back with dyslipidemia and patient
went for SANJEEV which found an EF of 50 to 55% and intermediate diastolic dysfunction however they were not able to cardiovert patient due to hypoxia that developed under anesthesia requiring bagging. Patient was immediately stabilized and transferred
back to hospital room. Patient became frustrated and wanted to leave AMA due to being overwhelmed prior to complete workup of A-fib. Pending results included troponin and proBNP. Hospital team discussed the risks of leaving prior to complete
workup but patient demanded to leave and patient was discharged on Eliquis, beta-magalis, antihypertensives, atorvastatin and follow-up with cardiology pulmonology. At discharge patient was still in A-fib with RVR BP 121/79, pulse 119, RR 22,
satting at 98%.
Important imaging findings :
01/26/2025 chest x-ray:
IMPRESSION:
Clear lungs.
Procedure findings :
01/27/2025 echocardiogram:
SUMMARY
1. Left ventricular cavity size is 5.40 cm which is normal.
2. Severe concentric left ventricular hypertrophy.
3. Low normal left ventricular function.
4. Ejection fraction is 50-55% by Dubon's method of discs.
5. Diastolic function indeterminate due to atrial fibrillation.
6. Right ventricular size and systolic function are within normal limits.
7. Indexed left atrial volume is mildly abnormal (35-41 ml/m2).
8. No significant valve disease.
9. Compared to a prior transesophageal echocardiogram study from 01/27/2025 no significant changes are seen.
01/26/2025 ECG:
ATRIAL FIBRILLATION WITH RAPID VENTRICULAR RESPONSE
ABNORMAL ECG
WHEN COMPARED WITH ECG OF 25-May-2014 10:43,
ATRIAL FIBRILLATION HAS REPLACED SINUS RHYTHM
VENT. RATE HAS INCREASED by 62 bpm
NONSPECIFIC T WAVE ABNORMALITY NOW EVIDENT IN LATERAL LEADS
Discharge Plan
-
Patient Disposition: Home (Routine Discharge)
Discharge Diagnosis/Procedures: A-fib with RVR
Condition: Fair
Diet: Low Sodium
Additional Diets: Restrict caffeinated beverages
Activity: As tolerated
Driving Restrictions: No driving for 24 hours
Instructions: Atrial Fibrillation (DC)
Referrals:
Johanna Lucas MD [Active, Pulmonary Medicine]
Referral Note: follow up with pulmonary, will need sleep study as outpatient
Ayse Almonte PA-C [Family Provider, Family Practice]
Jes Anglin CRNP [Specified Professional Personl, Cardiology] - 02/23/25 1:40 pm
Prescriptions:
New
carvedilol 6.25 mg Tablet
6.25 mg PO BID Qty: 60 0RF
atorvastatin 20 mg Tablet
20 mg PO QPM Qty: 30 0RF
Eliquis 5 mg Tablet
5 mg PO BID Qty: 60 0RF
Continued
therapeutic multivitamin Tablet
1 tab PO DAILY
ferrous sulfate 137 mg (45 mg iron) Tablet Extended Release
137 mg PO DAILY
Discharge Orders:
Discharge Patient (As Directed); Ordered 01/27/25
Ordered By: Noe Allen
Care Plan Goals
Care Plan Goals:
Problem: Readiness for enhanced knowledge related to diagnosis and treatment plan
Goal: Understand your diagnosis and treatment plan needs, including medications if applicable.
Instructions: Know your diagnosis, underlying causes and treatment plan options, including medications if applicable. Consult with your health care team to learn about your diagnosis and treatment plan, including medications if applicable.
Discharge Date and Time
Discharge Date/Time: 01/27/25 16:04
Print Language: NAURUAN

Documented by User: Noe Allen MD 01/27/25 16:29
Discharge Summary
Discharge Data
Date of Admission: 01/26/25
Date of Discharge: 01/27/25
Discharge Plan
-
Patient Disposition: Home (Routine Discharge)
Discharge Diagnosis/Procedures: A-fib with RVR
Condition: Fair
Diet: Low Sodium
Additional Diets: Restrict caffeinated beverages
Activity: As tolerated
Driving Restrictions: No driving for 24 hours
Instructions: Atrial Fibrillation (DC)
Referrals:
Johanna Lucas MD [Active, Pulmonary Medicine]
Referral Note: follow up with pulmonary, will need sleep study as outpatient
Ayse Almonte PA-C [Family Provider, Family Practice]
Jes Anglin CRNP [Specified Professional Personl, Cardiology] - 02/23/25 1:40 pm
Prescriptions:
New
carvedilol 6.25 mg Tablet
6.25 mg PO BID Qty: 60 0RF
atorvastatin 20 mg Tablet
20 mg PO QPM Qty: 30 0RF
Eliquis 5 mg Tablet
5 mg PO BID Qty: 60 0RF
Continued
therapeutic multivitamin Tablet
1 tab PO DAILY
ferrous sulfate 137 mg (45 mg iron) Tablet Extended Release
137 mg PO DAILY
Discharge Orders:
Discharge Patient (As Directed); Ordered 01/27/25
Ordered By: Noe Allen
Care Plan Goals
Care Plan Goals:
Problem: Readiness for enhanced knowledge related to diagnosis and treatment plan
Goal: Understand your diagnosis and treatment plan needs, including medications if applicable.
Instructions: Know your diagnosis, underlying causes and treatment plan options, including medications if applicable. Consult with your health care team to learn about your diagnosis and treatment plan, including medications if applicable.
Discharge Date and Time
Discharge Date/Time: 01/27/25 16:04
Print Language: NAURUAN
--- NOTE | 2025-01-27 15:40 | PTCARENOTE ---
Assumed care of the pt @ 0700. Pt is AAOx3 A fib on the monitor Heparin gtt infusing @ 1500 units/HR Cardizem gtt @ 15 mg/HR. 1000 Heparin gtt off Eliquis given.
1045 Report given to CCL pt transported for Cardioversion.
~ 1230 Pt returned from dock or pier laborer. Pt was tearful stating that she was leaving AMA. Dr Meehan/ Elaine Mcneill SKILLS TRAINER notified. Dr. Liu arrived at bedside the talk with pt. Cardizem iv dc'd and Coreg PO given.
1330 US done
1510 Pt used call bruno and stated that she was leaving now. Dr Meehan notified and discharge order was placed. Pt was given the discharge instructions Eliquis pamphlet given. 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 Pt refused wheelchair
escort to lobby.
--- NOTE | 2025-01-27 16:53 | W.PN.UPDATE ---
Update Note
Progress Note Update
Late entry: Our cardiology team was alerted that SANJEEV was aborted due to hypoxia. Dr. Tariq and I went to go speak with patient in recovery to discuss with patient the situation and new plan, which would include rate-control and staying the night for
monitoring, then OP f/u and plan for CV after 4 weeks OAC. However, during this conversation, she became upset and relayed that she did not want to discuss this with us right now, which we respected and said we would try and come back at a better
time. Soon after, I got a text from nursing saying that patient said she would rip everything out if someone didn't come talk to her in the next 15 minutes. When I came back up to talk to patient again, she told me it was not a good time since she
was getting an echo. I told her I would try again when I was able to come back up at a better time. I spoke with Dr. Allen, her primary inpatient physician, and discussed recommendations as noted above. He told me he saw and spoke with patient and
she is not willing to stay and planned to leave AMA. By the time I was able to come back up to talk to the patient again, she had already left. She was sent home on Coreg and Eliquis as recommended and has follow-up in our office arranged.
--- NOTE | 2025-01-28 13:24 | ITS.CL.PN ---
[employer] - Procedure Note
Procedure
Procedure Note:
Date of Procedure: 01/27/25
Procedure: SANJEEV
Indication: Symptomatic atrial fibrillation
Performing Physician: Heidi Caballero MD
Technique: The patient was brought to the holding area. Signed informed consent was obtained. A time out was called and performed. The patient was anesthetized by the anesthesia service. SANJEEV probe was inserted without difficulty. Patient became
hypoxic immediately into the study. Study was terminated early due to patient's respiratory status.
Conclusion: Incomplete SANJEEV. No cardioversion performed.
Recommendation: Post SANJEEV / sedatation care.
== END 2025-01-27 16:04 | disposition home or self-care (01) | DRG 309 ==
LOC: IVU 16:42
PROVIDERS: Nurse Practitioner Family; Physician Assistant; Student in an Organized Health Care Education/Training Program; ADMITTING PHYSICIAN Internal Medicine; ATTENDING PHYSICIAN General Practice; CONSULT PHYSICIAN Internal Medicine Cardiovascular Disease; EMERGENCY PHYSICIAN Emergency Medicine; FAMILY PHYSICIAN Physician Assistant Medical
PROC: B24BZZ4 Ultrasonography of Heart with Aorta, Transesophageal (ICD-10-PCS; 2025-01-27)
DX: I48.91 Unspecified atrial fibrillation (principal); N17.9 Acute kidney failure, unspecified; I11.9 Hypertensive heart disease without heart failure; E66.812 Obesity, class 2; Z68.37 Body mass index [BMI] 37.0-37.9, adult; Z79.01 Long term (current) use of anticoagulants
CPT/HCPCS: 71046; 80048; 80053; 80061; 83036; 83735; 84439; 84443; 84481; 85027; 85610; 85730; 93005; 93306; 93312; 93320; 93325; 96374; 99285

== ENCOUNTER 2025-02-28 07:16 | Day surgery (SDC) | payer BC, SELFPAY | END 2025-02-28 09:15 | disposition home or self-care (01) | LOC: CATH 07:16 | PROVIDERS: ATTENDING PHYSICIAN Student in an Organized Health Care Education/Training Program; FAMILY PHYSICIAN Physician Assistant Medical; OTHER PHYSICIAN Internal Medicine Cardiovascular Disease | DX: I48.19 Other persistent atrial fibrillation (principal); I10 Essential (primary) hypertension; E78.5 Hyperlipidemia, unspecified; Z79.01 Long term (current) use of anticoagulants | CPT/HCPCS: 92960; 93005 ==